=== PATIENT | female | born 1990 | race Caucasian/White ===

== ENCOUNTER 2016-05-12 11:11 | Inpatient (IN) | payer MEDICAID ==
[~2016-05-12] VITALS: Ht 165.1 cm; Wt 54.0 kg
[2016-05-12 12:17] LABS: BASOPHILS 0.2 % (0.0-2.0); EOSINOPHILS 0.2 % (0-7); HEMATOCRIT 37.5 % (36.0-48.0); HEMOGLOBIN 12.9 g/dL (12-16); IMMATURE GRANULOCYTES 0.4 % (0-5); LYMPHOCYTES 30.7 % (15-50); MCH 32.6 pg (26.0-34.0); MCHC 34.4 g/dL (31.0-37.0); MCV 94.7 fL (80.0-100.0); MEAN PLATELET VOLUME 12.4 fL (7.4-10.4); MONOCYTES 9.6 % (2-11); NEUTROPHILS 58.9 % (40-80); PLATELET COUNT 137 10x3/uL (130-400); RBC 3.96 10x6/uL (4.00-5.40); RDW 12.5 % (11.5-14.5); WBC 5.4 10x3/uL (4.8-10.8)
[2016-05-12 12:24] LABS: ALBUMIN 2.7 g/dL (3.4-5.0); ALKALINE PHOSPHATASE 254 U/L (46-116); ALT (SGPT) 24 U/L (10-68); BILIRUBIN - DIRECT 0.08 mg/dL (0.00-0.30); BILIRUBIN - INDIRECT 0.18 mg/dL (0.00-1.00); BILIRUBIN - TOTAL 0.26 mg/dL (0.2-1.3); CALC OSMOLALITY 269 mosm/kg (275-300); CALCIUM 8.4 mg/dL (8.5-10.1); CARBON DIOXIDE 26.5 mmol/L (21.0-32.0); CHLORIDE - SERUM 101 mmol/L (98-107); CREATININE - SERUM 0.7 mg/dL (0.6-1.3); GLUCOSE 71 mg/dL (74-106); POTASSIUM - SERUM 3.9 mmol/L (3.5-5.1); SODIUM 137 mmol/L (136-145); UREA NITROGEN 7 mg/dL (7-18); eGFR NON AFRICAN AMERICAN > 90 mL/min (90-120)
[2016-05-12 12:24] LABS: APPEARANCE CLEAR (CLEAR); BACTERIA MODERATE /hpf (NONE SEEN); BILIRUBIN NEGATIVE (NEGATIVE); COLOR YELLOW (YELLOW); EPITHELIAL CELLS 0-5 /hpf (0-5); GLUCOSE NEGATIVE (NEGATIVE); KETONE NEGATIVE (NEGATIVE); LEUKOCYTE ESTERASE TRACE (NEGATIVE); MUCUS <1+ /lpf (NONE SEEN); NITRITE NEGATIVE (NEGATIVE); PROTEIN 1+ mg/dL (NEGATIVE); RED CELLS - URINE 0-5 /hpf (0-5); SPECIFIC GRAVITY 1.005 (1.005-1.020); UROBILINOGEN NORMAL (NORMAL); WHITE CELLS - URINE 0-5 /hpf (0-5)
[2016-05-12] MEDS ORDERED: FISH OIL 1,0001 CA1 PO (12:50)
[2016-05-12] MEDS ORDERED: PRENATAL COMPLE1 TAB PO (12:50)
[2016-05-12 13:15] VITALS: BP 117/78
[2016-05-12 14:15] VITALS: BP 124/73
[2016-05-12 15:15] VITALS: BP 121/84
[2016-05-12 16:15] VITALS: BP 120/76
[2016-05-12 16:59] LABS: HEMOGLOBIN 11.8 g/dL (12-16); MCH 32.5 pg (26.0-34.0); MCHC 33.7 g/dL (31.0-37.0); MCV 96.4 fL (80.0-100.0); MEAN PLATELET VOLUME 12.2 fL (7.4-10.4); RBC 3.63 10x6/uL (4.00-5.40); RDW 12.4 % (11.5-14.5); WBC 8.1 10x3/uL (4.8-10.8)
[2016-05-12 17:15] VITALS: BP 136/90
[2016-05-12 19:33] VITALS: BP 133/79; Ht 165.1 cm; Wt 54.0 kg
[2016-05-13] VITALS (15 sets, daily range): BP systolic 118–199; BP diastolic 74–103
[2016-05-13 05:22] LABS: HEMATOCRIT 34.8 % (36.0-48.0); MCH 32.3 pg (26.0-34.0); MCHC 34.5 g/dL (31.0-37.0); MEAN PLATELET VOLUME 12.1 fL (7.4-10.4); RBC 3.72 10x6/uL (4.00-5.40); RDW 12.4 % (11.5-14.5)
[2016-05-13 05:23] LABS: MCV 93.5 fL (80.0-100.0); WBC 5.8 10x3/uL (4.8-10.8)
[2016-05-13 12:41] LABS: BASOPHILS 0.2 % (0.0-2.0); EOSINOPHILS 0 % (0-7); HEMATOCRIT 35.4 % (36.0-48.0); IMMATURE GRANULOCYTES 0.6 % (0-5); LYMPHOCYTES 25.6 % (15-50); MCH 32.1 pg (26.0-34.0); MCHC 33.9 g/dL (31.0-37.0); MCV 94.7 fL (80.0-100.0); MEAN PLATELET VOLUME 12.5 fL (7.4-10.4); MONOCYTES 6.8 % (2-11); NEUTROPHILS 66.8 % (40-80); PLATELET COUNT 145 10x3/uL (130-400); RBC 3.74 10x6/uL (4.00-5.40); RDW 12.5 % (11.5-14.5); WBC 5.3 10x3/uL (4.8-10.8)
[2016-05-13 12:57] LABS: CALC OSMOLALITY 273 mosm/kg (275-300); CALCIUM 7.1 mg/dL (8.5-10.1); CARBON DIOXIDE 23.3 mmol/L (21.0-32.0); CHLORIDE - SERUM 105 mmol/L (98-107); CREATININE - SERUM 0.7 mg/dL (0.6-1.3); GLUCOSE 94 mg/dL (74-106); POTASSIUM - SERUM 3.5 mmol/L (3.5-5.1); SODIUM 138 mmol/L (136-145); UREA NITROGEN 7 mg/dL (7-18); URIC ACID 6.1 mg/dL (2.6-7.2); eGFR NON AFRICAN AMERICAN > 90 mL/min (90-120)
[2016-05-13 12:58] LABS: PROTEIN - URINE 33.5 mg/dL (0.0-11.9)
[2016-05-13 12:59] LABS: MAGNESIUM - SERUM 4.9 mg/dL (1.8-2.4)
[2016-05-13 13:10] LABS: ALT (SGPT) 23 U/L (10-68)
[2016-05-13 16:47] LABS: HEMATOCRIT 39.4 % (36.0-48.0); HEMOGLOBIN 13.5 g/dL (12-16); MCH 32.6 pg (26.0-34.0); MCHC 34.3 g/dL (31.0-37.0); MCV 95.2 fL (80.0-100.0); MEAN PLATELET VOLUME 12.4 fL (7.4-10.4); RBC 4.14 10x6/uL (4.00-5.40); RDW 12.5 % (11.5-14.5)
--- NOTE | 2016-05-13 21:31 | NUR ---
PAIN 5/10 TO PERINUM AND ABD, BURNING AND STINGING TO PERINUM, CRAMPING INTERMITTENTLY TO ABD. REQUESTS PERCOCET AND MOTRIN BE GIVEN TOGETHER, MEDS GIVEN PER ORDER AND PT REQUEST.
--- NOTE | 2016-05-13 22:20 | NUR ---
PAIN REASSESSMENT COMPLETED, PAIN 3/10 AT THIS TIME. PT VERBALIZED THAT THIS IS AN ACCEPTABLE PAIN LEVEL. NEW ICE PACK APPLIED TO PERINUM.
--- NOTE | 2016-05-13 22:53 | NUR ---
PT TRANSFERRED TO ROOM 1274 FOR CONTINUED PP CARE. B/P REMAINS ELEVATED, AWARE. MGSO4 CONTINUING TO INFUSE AT 25 MLS/HR. ORIENTED PT TO NEW ROOM. CL/PHONE PLACED WITHIN REACH. PERIPAD CHANGED. EPIFOAM APPLIED TO EPIOSTOMY SITE PER PT REQUEST. S/O AT BEDSIDE, SUPPORTIVE OF PT. ICE WATER AND ICE CHIPS GIVEN PER REQUEST. BED PLACED IN LOW POSITION UPPER SIDE RAILS RAISED X2.
--- NOTE | 2016-05-13 23:00 | NUR ---
PT A&O X3, 3+ DTR'S WITHOUT CLONUS. PT TEARFUL STATING THAT SHE IS WORRIED ABOUT HER INFANT AND FEELS LIKE SHE ISN'T BEING TOLD EVERYTHING. NBN CONTACTED AND NBN RN SPOKE WITH PT REGARDING INFANTS CONDITION, PT VERBALIZED THAT THIS DID HELP "EASE MY MIND." PT REPORTS THAT SHE FEELS OUT OF CONTROL NOT BEING ABLE TO BE WITH HER , EXPLAINED TO PT THAT ONCE B/P'S STABLIZE SHE CAN BE TAKEN TO SEE , PT APPRECIATIVE OF THIS. NBN PHONE NUMBER GIVEN TO PT AND EXPLAINED TO HER THAT SHE CAN CALL INTO NBN ANYTIME TO CHECK ON INFANT, VERBALIZED UNDERSTANDING.
[2016-05-14] VITALS (18 sets, daily range): BP systolic 121–155; BP diastolic 79–99
--- NOTE | 2016-05-14 00:01 | NUR ---
DTR'S 3+, SLEEPING AT THIS TIME BUT EASILY ARROUSABLE, ORIENTED X3. DENIES NEED TO VOID AT THIS TIME. FUNDUS REMAINS FIRM, U1 WITH MODERATE AMT RUBRA LOCHIA, PERIPAD CHANGED, NO CLOTS NOTED. BLADDER NONDISTENDED. BREATH SOUNDS CLEAR AND EQUAL BILATERALLY. DENIES NEEDS AT THIS TIME, REPORTS THAT S/O STEPPED OUT TO GET "FRESH AIR." REINFORCED USE OF CALL FOR ASSISTANCE, VERBALIZED UNDERSTANDING.
--- NOTE | 2016-05-14 01:01 | NUR ---
DTR'S 3+ WITHOUT CLONUS. PT A&O X3 AT THIS TIME REPORTS THAT PAIN IS BEGINNING TO RETURN AND CRAMPING IS "REALLY HURTING." EXPLAINED THAT PIT WAS STILL RUNNING AND PURPOSE FOR IT TO BE RUNNING, VERBALIZED UNDERSTANDING. RATES PAIN 6/10, REQUESTS PAIN MEDICATION WHEN IT IS DUE. DENIES NEED TO VOID AT THIS, BLADDER NONDISTENDED, FUNDUS REMAINS FIRM, U1 WITH SMALL AMT RUBRA LOCHIA TO PERIPAD. DENIES NEEDS AT THIS TIME.
--- NOTE | 2016-05-14 01:51 | NUR ---
PAIN 9/10, PERINUM ACHING AND BURNING AND "REALLY BAD STOMACH CRAMPS. IT FEELS LIKE I AM HAVING CONTX ALL OVER AGAIN. CAN YOU PLEASE MAKE IT STOP." EXPLAINED THAT PIT WAS STILL RUNNING AND PURPOSE BEHIND THIS, VERBALIZED UNDERSTANDING BUT REQUQUESTED THAT PIT BE TURNED OFF, PIT OFF PER PT REFUSAL, EXPLAINED THAT IF BLEEDING BEGAN PIT WOULD HAVE TO BE RESTARTED, VERBALIZED UNDERSTANDING. PERCOCET GIVEN PER ORDERS AND REQUEST.
--- NOTE | 2016-05-14 02:06 | NUR ---
DTR'S 3+ WITHOUT CLONUS. BREATH SOUNDS CLEAR AND EQUAL BILATERALLY. A&O X3. PT VOIDED 750 MLS PINK-TINGED URINE IN BEDPAN. BLADDER NONDISTENDED, FUND REMAINS FIRM U1 WITH SMALL AMT RUBRA LOCHIA TO PERIPAD. PT C/O "LOTS OF BURNING WITH URINATION." PERICARE COMPLETED WITH BETADINE WATCH FOLLOWING VOID, EPIFOAM APPLIED TO LACERATION, PT VERBALIZED RELIEF OF BURNING. ICE PACK APPLIED TO PERINUM PER PT REQUEST. POPICLE GIVEN PER REQUEST. DENIES ADDITIONAL NEEDS AT THIS TIME.
--- NOTE | 2016-05-14 02:14 | NUR ---
PT REPORTS THAT PAIN REMAINS 9/10. STATES IT IS INTERMITTENTLY AND ONLY OCCURS WHEN ABD CRAMPS. NO LONGER TEARFUL. DISCUSSED ORDERS FOR PAIN MEDICATIONS AND FREQUENCY. PT REQUESTS TORADOL BE GIVEN FOR ABD CRAMPING EXPLAINED NEED TO WAIT FULL 6 HRS BETWEEN MOTRIN AND TORADOL, FUNDUS REMAINS FIRM WITH SMALL AMT RUBRA LOCHIA, NO CLOTS. TORADOL GIVEN PER PT REQUEST.
--- NOTE | 2016-05-14 02:45 | NUR ---
PAIN REASSESSMENTS COMPLETED. 06/16 AT THIS TIME. PT RESTING COMFORTABLY. REQUESTS ANOTHER POPICLE, GIVEN PER REQUEST. DENIES ADDITIONAL NEED S/O BACK TO BEDSIDE AT THIS TIME.
--- NOTE | 2016-05-14 03:01 | NUR ---
PT A&O X3 ON TABLET WITH HOB ELEVATED TO 45 DEGREES. B/P REMAINS ELEVATED, STATES PAIN IS TOLERABLE AT 3-4/10. DTR'S REMAIN 3+ WITHOUT CLONUS. CLEAR BREATH SOUNDS. DENIES NEED TO VOID, BLADDER NON DISTENDING, FUNDUS FIRM, U1 WITH SMALL AMT RUBRA LOCHIA TO PERIPAD, NO CLOTS. EXPLAINED THAT LOWER STIMULI HELPS TO KEEP B/P'S LOWER, VERBALIZED UNDERSTANDING, REPORTS THAT SHE IS GOING TO TRY TO REST SHORTLY, SHE WAS LOOKING AT PICTURES OF HER . S/O REMAINS AT BEDSIDE AND SUPPORTIVE OF PT.
--- NOTE | 2016-05-14 04:01 | NUR ---
DTR'S 3+, CLEAR BREATH SOUNDS. PT RESTING WITH EYES CLOSED, AROUSES EASILY AND IS ORIENTED X3. VOIDS 420 MLS ON BEDPAN. BLADDER NONDISTENDED. FUNDUS FIRM, U1 WITH SMALL AMT RUBRA LOCHIA TO PERIPAD, NO CLOTS PRESENT. ICE CHIPS AND POPICLE GIVEN PER REQUEST. ICE PACK REPLACED TO PERINUM.
--- NOTE | 2016-05-14 05:08 | NUR ---
B/P TRENDING DOWN. DRT'S REMAIN 3+ WITHOUT CLONUS. A&O X3, BREATH SOUND CLEAR. VOIDED 500 MLS IN BED YARBROUGH, REPORTS THAT PAIN INCREASED FOLLOWING VOID WITH INCREASED BURING TO PERINUM. PERICARE DONE WITH BETADINE WASH. PERIPAD CHANGED, EPIFOAM APPLIED, VERBALIZED RELIEF. REQUESTS PAIN MED WHEN SHE CAN HAVE IT. ICE WATER GIVEN.
[2016-05-14 05:20] LABS: BASOPHILS 0.1 % (0.0-2.0); EOSINOPHILS 0 % (0-7); HEMATOCRIT 34.5 % (36.0-48.0); HEMOGLOBIN 11.9 g/dL (12-16); IMMATURE GRANULOCYTES 0.4 % (0-5); LYMPHOCYTES 15.7 % (15-50); MCH 31.9 pg (26.0-34.0); MCHC 34.5 g/dL (31.0-37.0); MEAN PLATELET VOLUME 12.5 fL (7.4-10.4); MONOCYTES 5.7 % (2-11); NEUTROPHILS 78.1 % (40-80); PLATELET COUNT 134 10x3/uL (130-400); RBC 3.73 10x6/uL (4.00-5.40); RDW 12.3 % (11.5-14.5)
[2016-05-14 05:23] LABS: MCV 92.5 fL (80.0-100.0)
--- NOTE | 2016-05-14 05:33 | NUR ---
PAIN 7/10, BURNING AND STINGING TO PERINUM. REQUESTED PERCOCET TAB. MED GIVEN PER ORDERS. EPIFOAM REAPPLIED TO PERINUM. STATES THAT PAIN TO PERINUM IS CONSTANT AT THIS TIME. REPOSITION TO RIGHT LATERAL TILT, PT REPORTS THAT THIS DID RELIEVE SOME OF THE PRESSURE THAT SHE WAS FEELING ON HER PERINUM.
[2016-05-14 05:51] LABS: ALT (SGPT) 21 U/L (10-68); CALC OSMOLALITY 265 mosm/kg (275-300); CALCIUM 7.1 mg/dL (8.5-10.1); CARBON DIOXIDE 22.5 mmol/L (21.0-32.0); CHLORIDE - SERUM 103 mmol/L (98-107); CREATININE - SERUM 0.6 mg/dL (0.6-1.3); GLUCOSE 78 mg/dL (74-106); POTASSIUM - SERUM 3.7 mmol/L (3.5-5.1); SODIUM 135 mmol/L (136-145); URIC ACID 5.5 mg/dL (2.6-7.2); eGFR NON AFRICAN AMERICAN > 90 mL/min (90-120)
[2016-05-14 05:52] LABS: MAGNESIUM - SERUM 4.5 mg/dL (1.8-2.4); UREA NITROGEN 5 mg/dL (7-18)
--- NOTE | 2016-05-14 06:18 | NUR ---
DRT'S 3+, ALERT AND ORIENTED X3. STATEST THAT SHE IS CRAMPING "REALLY REALLY BAD." REVIEWED PAIN MED ORDERS WITH PATIENT AND EXPLAINED THAT SHE COULD NOT HAVE ANY MORE PAIN MEDICATION UNTIL 30. VERBALIZED UNDERSTANDING. POPICLE AND ICE WATER GIVEN PER REQUEST. S/O REMAINS AT BEDSIDE.
--- NOTE | 2016-05-14 07:15 | NUR ---
ASSUME CARE OF THIS PATIENT AFTER SHIFT REPORT. SEE SHIFT ASSESSMENT AND MAGNESIUM ASSESSMENT. U/U FIRM, MIDLINE, RUBRA SMALL. DENIES GARCIA. SIDE RAILS UP X 2, CALL LIGHT IN REACH.
--- NOTE | 2016-05-14 08:00 | NUR ---
VOIDED 600 CC URINE ON BEDPAN. REQUESTED PAIN MEDICATION FOR 5/10 CRAMPING. INSTRUCTED TO LET RN KNOW IF CONTINUED PAIN OR INCREASED PAIN. VERBALIZED UNDERSTANDING. DENIES GARCIA TODAY. SIDE RAILS UP X 2, CALL LIGHT IN REACH. DISCUSSED CAUSES OF CRAMPING AND PURPOSE IN PREVENTING INCREASED BLOOD LOSS . VERBALIZED UNDERSTANDING. ALSO INFORMED THAT SHE WILL BE STARTED ON MEDICATION TODAY TO HELP LOWER BP. REMAINS IN NURSERY, FOB AT BEDSIDE.
--- NOTE | 2016-05-14 08:15 | NUR ---
RESTING IN SEMIFOWLERS POSITION. LIGHTS ON LOW. DENIES NEEDING ANYTHING AT THIS TIME. SIDERAILS UP, CALL LIGHT IN REACH.
--- NOTE | 2016-05-14 08:42 | NUR ---
PROCARDIA 30 MG GIVEN PO AFTER DISCUSSING PURPOSE OF MEDICATION AND POSSIBLE SIDE EFFECT. STILL WITH 5/10 INTERMITTENT CRAMPS AND "STITCHES HURTING". DISCUSSED ADDITIONAL RELIEF OPTIONS.
--- NOTE | 2016-05-14 09:04 | NUR ---
NOW WITH 8/10 CRAMPING AND 5/10 PERINEAL PAIN. VOIDED 500 ML CLEAR URINE ON BEDPAN. U/2 FIRM MIDLINE AFTER VOID. RUBRA SCANT. EPIFOAM AND TUCKS PAD APPLIED TO PERINEAL AREA AND INSTRUCTED ON USE. ALSO DERMOPLAST SPRAY FOR ALTERNATE USE. WILL GIVE PERCOCET FOR ADDITIONAL CRAMPING RELIEF WHEN IT IS DUE WITHIN 4 HR TIMEFRAME. PT VERBALIZED UNDERSTANDING. NO ACUTE DISTRESS NOTED.
--- NOTE | 2016-05-14 09:15 | NUR ---
PERCOCET 10 MG GIVEN PO FOR RELIEF OF CRAMPING AND PERINEAL PAIN. MG ASSESSMENT COMPLETED. SIDE RAILS UP X 2, CALL LIGHT IN REACH.
--- NOTE | 2016-05-14 09:53 | NUR ---
SLEEPING IN SEMI-FOWLERS POSITION. RESPIRATIONS EVEN. NOT AROUSED AT THIS TIME.
--- NOTE | 2016-05-14 10:15 | NUR ---
AWAKE, SITTING UP IN BED. DENIES NEEDING ANYTHING. 3/10 INTERMITTENT CRAMPING. FOB IN ROOM, REMAINS IN NURSERY. SIDE RAILS UP X 2, CALL LIGHT IN REACH. MAGNESIUM ASSESSMENT COMPLETED
--- NOTE | 2016-05-14 11:20 | NUR ---
MAG ASSESSMENT COMPLETED. PT COMPLETED PARTIAL BED BATH PER SELF. VOIDED 600 CC ON BED YARBROUGH. DERMOPLAST SPRAY APPLIED TO PERINEUM AND MAXIMINO CARE. REQUESTED BREAST PUMP. NURSERY NOTIFIED. NO ADDITIONAL REQUEST AT THIS TIME. FOB IN ROOM.
--- NOTE | 2016-05-14 11:30 | NUR ---
BREAST PUMP SET UP FOR PT. PT INSTRUCTED ON USE OF PUMP AND ATTACHMENTS. PT DEMONSTRATES UNDERSTANDING. PT ALSO INSTRUCTED ON BREAST MILK STORAGE. VERBALIZES UNDERSTANDING.
--- NOTE | 2016-05-14 12:53 | NUR ---
VOIDED 700 CC CLEAR URINE ON BED YARBROUGH. FRESH ICE PACK AND PERIPAD TO PERINEUM. ELEVATED BP NOTED WHEN AUTOMATIC BP CUFF INFLATED DURING PATIENT GETTING OFF BEDPAN. BP RECHECKED. SIDE RAILS UP X 2, CALL LIGHT IN REACH. FOB PRESENT.
--- NOTE | 2016-05-14 14:15 | NUR ---
MAG ASSESSMENT COMPLETED. C/O 5/10 CRAMPING AFTER VOIDING ON BEDPAN 600 CC URINE. PERCOCET 5 MG GIVEN PO FOR RELIEF OF CRAMPING. DERMOPLAST SPRAY APPLIED TO PERINEUM AFTER PERICARE. FOB VISITED NURSERY. AND VIDEO FOR MOTHER TO SEE. NO ADDITIONAL REQUESTS AT THIS TIME. SIDE RAILS UP X 2, CALL LIGHT IN REACH.
--- NOTE | 2016-05-14 14:50 | NUR ---
VOIDED 600 ML URINE ON BEDPAN. EPIFOAM AND TUCKS APPLIED TO PERINEAL AREA FOR COMFORT. 5/10 INTERMITTENT CRAMPING CONTINUES. POSITIONED FOR COMFORT. SIDE RAILS UP X2 CALL LIGHT IN REACH.
--- NOTE | 2016-05-14 15:15 | NUR ---
MAG SULFATE ASSESSMENT COMPLETED. 07/17 CRAMPING. OFFERED MOTRIN BUT DESIRES TO WAIT TO SEE IF PERCOCET CONTINUES TO HELP. LEMON AKUT[place] DRINK AND POPCYCLE GIVEN PER REQUEST OF PATIENT. FOB IN ROOM.
--- NOTE | 2016-05-14 15:59 | NUR ---
PT C/O OF SUDDEN ONSET OF SHOOTING "LIGHTENING BOLT" PAIN FROM ABOVE UPPER RIGHT ILIAC CREST DOWN RIGHT LATERL HIP AND THIGH. STOPPED AT RIGHT KNEE. WAS 9/10 AT THAT TIME. REPOSITIONED PATIENT TO LEFT SIDE. TENDER TO PALPATION ABOVE ILIAC CREAST, LATERAL HIP, RIGHT GLUTEUS SIS AND LATERAL THIGH. PROVIDED ROM EXERCISE WITH STRETCHES AND MASSAGE. INSTRUCTED PT ON BUTTOCK MASSAGE TO RELAX MUSCLES. SAID IF FELT BETTER AND NO LONGER FEEL RADIATING DOWN LEG. PAIN 7/10 AT THIS TIME AND LOCATED FROM ILIAC CREST TO UPPER RIGHT HIP. LAST BM >2 DAYS AGO. STOOL PALPATED RIGHT ASCENDING COLON. SAYS SHE HAS BEEN PASSING GAS. DR. CASTRO NOTIFIED WILL TRY SIMETHICONE TO SEE IF RELATED TO GAS AT THIS TIME. BOWEL SOUNDS HAVE BEEN ACTIVE. RESTING IN LOW FOWLERS POSITION. SIMETHICONE 80MG GIVEN PO. ENCOURAGED RELAXATION AT THIS TIME. SIDE RAILS UP X 2, CALL LIGHT IN REACH.
--- NOTE | 2016-05-14 16:15 | NUR ---
VOIDED 900+ CC URINE IN BEDPAN WITH SOME SPILLAGE IN BED. COMPLETE LINEN CHANGE DONE. MAG SULFATE ASSESSMENT COMPLETED. POSITIONED FOR COMFORT. C/O 10/16 PERINEAL PAIN, REQUESTED MOTRIN. DERMOPLAST APPLIED WITH CLEAN MAXIMINO-PAD. RIGHT HIP PAIN DECREASED AFTER VOIDED. INSTRUCTED ON DIURESING WHILE ON MAG IN PREECLAMPTIC PATIENTS AND ENCOURAGED TO THINK ABOUT VOIDING MORE OFTEN VS WAITING UNTIL STRONG URGE. INSTRUCTED THAT THIS COULD ALSO BEEN CAUSE OF RIGHT SIDED PAIN. VERBALIZED UNDERSTANDING. DERMOPLAST APPLIED WITH CLEAN MAXIMINO-PAD. MAGNESIUM ASSESSMENT COMPLETED. SIDE RAILS UP X 2, CALL LIGHT IN REACH.
--- NOTE | 2016-05-14 16:37 | NUR ---
MOTRIN 600 MG GIVEN PO FOR RELIEF OF PERINEAL DISCOMFORT.
--- NOTE | 2016-05-14 17:15 | NUR ---
MAG SULFATE ASSESSMENT COMPLETED. HOLDING INFANT IN ARMS. SMILING. 5/10 PERINEAL CONTINUES, RIGHT SIDED HIP PAIN IS BETTER. STATES "I'M JUST HOLDING STILL". ASKED ABOUT . Robinson ALCOCER RN TO DISCUSS PLAN WITH PT. SIDE RAILS UP X 2, CALL LIGHT IN REACH. FRESH WATER GIVEN. TO CALL IF ANYTHING IS NEEDED. PLAN PER MD TO [facility] AT 1830.
--- NOTE | 2016-05-14 17:58 | NUR ---
VOIDED 700 ML URINE ON BEDPAN. ASSISTED TO SITTING POSITION FOR DINNER. INFANT BACK IN NURSERY. FOB IN ROOM. SIDE RAILS UP X 2, CALL LIGHT IN REACH.
--- NOTE | 2016-05-14 18:35 | NUR ---
IV MAGNESIUM AND 1/2 NS DC'D PER MD ORDER. SALINE LOCK FLUSHED X 3 PORTS. SCD'S OFF. ASSISTED TO SITTING POSITION. STOOD WITH SLIGHT ASSISTANCE AND ASSIST TO BATHROOM. GAIT STEADY AND SLOW. VOIDED 700 URINE IN BATHROOM. CLEAN PAD AND UNDERPANTS ON. ASSISTED BACK TO BED. INSTRUCTED IMPORTANCE OF RECEIVING ASSISTANCE WHEN OUT OF BED UNTIL OK'D BY RN TO GET UP PER SELF, SECONDARY TO CONTINUED MAGNESIUM IN SYSTEM. VERBALIZED UNDERSTANDING. ASKED IF IT IS TIME FOR PAIN MEDICATON SECONDARY TO PERINEAL PAIN. USED DERMOPLAST SPRAY AT THIS TIME. FOB IN ROOM. INFANT IN NURSERY. CALL LIGHT IN REACH AND SIDE RAILS UP X 2.
--- NOTE | 2016-05-14 19:26 | NUR ---
PAIN 6/10 TO PERINUM AND ABD, BURNING/STINGING/ACHING TO PERINUM, INTERMITTENT ABD CRAMPING. PERCOCET GIVEN PER ORDERS AND PT REQUEST. PT BONDING WITH INFANT SKIN TO SKIN AT THIS TIME. FUNDUS FIRM, U2 WITH SMALL AMT RUBRA LOCHIA TO PERIPAD. PT REQUESTS FURTHER ASSESSMENT BE COMPLETED ONCE SHE FINISHES BONDING WITH INFANT. ICE WATER GIVEN, DENIES ADDITIONAL NEEDS AT THIS TIME. WILL CONT TO MONITOR. S/O AT BEDSIDE. CL/PHONE WITHIN REACH. REINFORCED USE OF CL FOR ASSISTANCE OOB, VERBALIZED UNDERSTANDING.
--- NOTE | 2016-05-14 20:20 | NUR ---
CALLED TO ROOM VIA CL BY PT. STATES THAT SHE WANTS TO ATTEMPT TO BREAST FEED BUT IS AFRAID TO MOVE INFANT. EXPLAINED TO PT THAT SHE CAN MOVE INFANT AND ENCOURAGED HER TO DO SO. INSTRUCTION PROVIDED ON TECHNIQUES TO WAKE BABY. ARTURON RN TO ROOM TO ASSIST WITH AT THIS TIME.
--- NOTE | 2016-05-14 20:46 | NUR ---
INFANT BACK TO NBN. PT PUMPING AT THIS TIME. INSTRUCTED TO CALL RN USING CL WHEN SHE COMPLETES PUMPING, VERBALIZED UNDERSTANDIGN.
--- NOTE | 2016-05-14 21:15 | NUR ---
PT COMPLETED PUMPING. SHIFT ASSESSMENT COMPLETED. VSS. PAIN 2/10 AT THIS TIME. FUNDUS REMAINS FIRM, SMALL AMT RUBRA LOCHIA NOTED TO PERIPAD, NO CLOTS. MILK OF MAGNESIA GIVEN, SEE EMAR. BOWEL SOUNDS PRESENT AND ACTIVE X4 QUADS, REPORTS THAT SHE IS PASSING GAS. QUESTIONS ANSWERED REGARDING POSSIBLE DISCHARGE AND THAT INFANT WILL LIKELY NOT BE D/C'D AT SAME, EXPLAINED ROOMING IN PROGRAM TO PT, VERBALIZED UNDERSTANDING AND DENIED QUESTIONS. EDUCATED ON S/S OF INFECTIONS/COMPLICATIONS TO REPORT, PAIN MGMT AND USE OF PAIN MEDICATIONS WELL SIDE EFFECTS, DISCUSSED MILK OF MAG USE AND SIDE EFFECTS, VERBALIZED UNDERSTANDING. REINFORCED EDUCATION ON PERINEAL CARE AND HYIGENE, VERBALIZED AND DEMONSTRATED UNDERSTANDING. PT DENIES QUESTIONS AT THIS TIME. REQUESTS TO SHOWER. RN ASSISTED PT TO SHOWER CHAIR. UNSTEADY GAIT NOTED. RN REMAINED IN ROOM DURING SHOWER RELATED TO UNSTEADY GAIT AND SPASTIC MOVEMENTS. PT REPORTS THAT SHE FEELS WEAK AT THIS TIME, DENIES DIZZINESS/LIGHTHEADEDNESS, EXPLAINED THAT MGSO4 CAN CAUSE THIS AND IT WILL SUBSIDE. VERBALIZED UNDERSTANDING. LINEN CHANGED.
--- NOTE | 2016-05-14 21:45 | NUR ---
PT COMPLETED SHOWER, ASSISTANCE WITH GETTING DRESSED PROVIDED. PT CHANGED INTO HER OWN CLOTHES. ASSISTED BACK TO BED, REINFORCED USE OF CL PRIOR TO GETTING OOB, VERBALIZED UNDERSTANDING. CL/PHONE WITHIN REACH. BED IN LOW POSITION, UPPER SIDE RAILS RAISED X2.
--- NOTE | 2016-05-15 00:09 | NUR ---
PAIN 7/10 BURNING AND STINGING TO PERINUM, INTERMITTENT ABD CRAMPING. REQUESTS MOTRIN AND PERCOCET BE TAKEN TOGETHER, STATING THAT WHEN SHE TAKES THEM TOGETHER PAIN IS DECREASED. GIVEN PER REQUEST. ICE WATER GIVEN. S/O AT BEDSIDE, DENIES ADDITIONAL NEEDS AT THIS TIME.
--- NOTE | 2016-05-15 00:16 | NUR ---
CALLED TO ROOM VIA CL. PT REPORTS THAT SHE CAN'T GET THE BREAST PUMP TO SEAL ON HER BREAST. RN PROVIDED ASSISTANCE, BREAST PUMP WOULD NOT FORM SEAL. NEW BREAST PUMP PROVIDED TO PATIENT, WORKING PROPERLY WHEN RN LEFT ROOM.
[2016-05-15 00:55] VITALS: BP 140/84
--- NOTE | 2016-05-15 00:55 | NUR ---
PT COMPLETED PUMPING, NO BREAST MILK FROM PUMPING AT THIS TIME. PAIN REASSESSMENT COMPLETED, WITH PAIN 05/19. B/P 140/84 AT THIS TIME. ASSISTED TO BATHROOM WITH 500 MLS CLEAR YELLOW URINE VOIDED. GAIT REMAINS UNSTEADY, INSTRUCTED TO CONT TO USE CL FOR ASSISTANCE OOB, VERBALIZED UNDERSTANDING.
--- NOTE | 2016-05-15 02:05 | NUR ---
ROUNDS MADE. INFANT JUST BROUGHT TO ROOM BY NBN. PT AT THIS TIME. DENIES NEEDS. S/O REMAINS AT BEDSIDE. WILL CONT TO MONITOR AND ASSIST PRN.
--- NOTE | 2016-05-15 04:11 | NUR ---
ROUNDS MADE. PT SLEEPING AT THIS TIME. RESPIRATIONS REGULAR, NO S/S OF DISTRESS NOTED. S/O AT BEDSIDE ON CELL PHONE. DENIES NEEDS AT THIS TIME. BED IN LOW POSITION, CL/PHONE WITHIN REACH. WILL CONT TO MONITOR.
--- NOTE | 2016-05-15 05:36 | NUR ---
PAIN 7/10, REQUESTED PAIN PILL. STATES ABD CRAMPING AND BURNING/STINGING TO PERINUM. REPORTS THAT SHE HAD BM AND PERINUM IS REALLY HURTING. PERCOCET GIVEN PER REQUEST. ICE WATER GIVEN, DENIES ADDITIONAL NEEDS. CURRENTLY NURSING INFANT.
--- NOTE | 2016-05-15 07:15 | NUR ---
Bedside report received from Montse Mcgarry rn. Upon entering room pt is resting with eyes closed and infant layed across her chest. States that she is very tired and cannot keep her eyes open. Offered to take infant back to nursery so that she may sleep and she is agreeable. Rates her pain at 2/10, denies any needs at this time. Side rails up x 2 with phone and call light in reach. Ask that she call for nurse when she wakes..Infant taken to nbn via crib.
[2016-05-15 09:30] VITALS: BP 131/92
--- NOTE | 2016-05-15 09:35 | NUR ---
Zeynep Harmon 05/15/16 S: Patient states baby takes some time latching on, once she gets on there, baby does fine. O: Patient lying in bed, FOB lying on sofa, both appears to be sleeping. CLC walked in room with nursery nurse who brought in for feeding. Observed patient attempt to latch , infant was placed to the left breast. awake and content didn't latch immediately. Patient doesn't have flat or inverted nipples. places her tongue on top of her mouth when trying to latch. Showed patient, she may place her clean finger in, mouth, with her tongue on the bottom and let suck for a few minutes, then try latching infant to the breast. Explain how to verify is latched correctly to the breast. Attempted to re latch infant, infant was turned tummy to tummy, nose opposite of nipple, infant self-latched on left breast at 9:26, sucking in a rocking motion, mouth round, and 140 degrees. Infant appear content with feeding, patient states she feels her stomach kelly, explain that is normal, it confirms infant is latched correctly. Explain does take time and patience, explain feeding cues, benefits of skin to skin, breastmilk composition, and encouraged to continue to latch for every feeding. Asked if she had any questions or concerns, all declined. Offered to make [facility] appointment, patient states she will do so at a later time. A: Patient appears to be very tired. P: Continue to support exclusively during hospital visit. LORENE Aguayo CLC
[2016-05-15] MEDS ORDERED: PERCOCET 5-3251 TAB PO (09:44)
[2016-05-15] MEDS ORDERED: IBUPROFEN600 MG PO (09:44)
--- NOTE | 2016-05-15 09:45 | NUR ---
Saline lock to right wrist d/c with cath intact.
--- NOTE | 2016-05-15 09:45 | NUR ---
Assessment completed as charted on flowsheet. Info given about rooming in and tdap, pt asked to read over than let nurse know if she has any questions or concerns. Fundus firm at u/u with scant bleeding, she denies any clots with voids but continue to say she has a lot of burning in perineum area, sitz bath offered to help with pain relief but pt refuses at this time. Encouraged her to let nurse know if she changes her mind, also explained that warm shower could help. Rates pain at 5/10 and is agreeable to pain med. She states that Dr Kraus came in and explained discharge/room-in and she denies any questions at this time, states that her friend will be back in about 20minutes to meat pickler scripts to go and fill for her.
[2016-05-15] MEDS ORDERED: PROCARDIA XL PO ×2 (09:47→09:48)
--- NOTE | 2016-05-15 10:15 | NUR ---
Percocet 5/325mg given po as charted on emar. PT holding infant close and talking with lacation technical assistance consultant at bedside. Call light in reach with side rails up x 2.
--- NOTE | 2016-05-15 11:38 | NUR ---
Pt scripts for Percocet 5/325mg, Motrin 600mg and Procardia XL 30mg given to pts sig other to take to pharmacy. Will go over discharge when he arrives back with her meds.
--- NOTE | 2016-05-15 13:01 | NUR ---
Called to room, pt has questions about feedings, Nursery notified and comes to room to provide assistance.
--- NOTE | 2016-05-15 13:21 | NUR ---
Pt sitting up in bed with to breast, additional pillows provided for her support. Denies needs at this time, side rails up x 2 with call light in reach.
--- NOTE | 2016-05-15 14:32 | NUR ---
PT DESIRES TDAP PRIOR TO DC. HAS RECEIVED INFORMATION SHEET AND NO CURRENT QUESTIONS. TDAP GIVEN IM LEFT DELTOID WITHOUT DIFFICULTY.
--- NOTE | 2016-05-15 14:50 | NUR ---
DC INSTRUCTIONS COMPLETED INCLUDING ROUTINE PP, BREASTCARE S&S INFECTION, PP DEPRESSION, MAXIMINO-CARE, MEDICATION INSTRUCTIONS AND FOLLOW-UP. VERBALIZED UNDERSTANDING. FOB PICKED UP PT PRESCRIPTIONS. HAS WRITTEN INFORMATION IN HAND. TRANSFERRED TO ROOMING IN STATUS TO ROOM 1215. ORIENTED TO ROOM. FOB PRESENT.
[2016-05-16 06:13] LABS: RAPID PLASMA REAGIN Non Reactive (Non Reactive)
== END 2016-05-15 14:50 | disposition home or self-care (01) | DRG 775 ==
LOC: D.LD 11:11 → D.LDO 11:11 → OBSVTIME 11:21 → D.LD 11:21
PROVIDERS: Obstetrics & Gynecology; ADMIT Specialist
PROC: 10E0XZZ Delivery of Products of Conception, External Approach (ICD-10-PCS; principal; 2016-05-13)
PROC: 0W8NXZZ Division of Female Perineum, External Approach (ICD-10-PCS; 2016-05-13)
DX: O14.14 Severe pre-eclampsia complicating childbirth (principal); Z3A.35 35 weeks gestation of pregnancy; Z37.0 Single live birth; K21.9 Gastro-esophageal reflux disease without esophagitis; K27.9 Peptic ulcer, site unspecified, unspecified as acute or chronic, without hemorrhage or perforation; O75.89 Other specified complications of labor and delivery; Z87.891 Personal history of nicotine dependence

== ENCOUNTER 2017-01-23 09:58 | Emergency (ER) | payer MEDICAID ==
[2016-05-12 19:33] VITALS: BMI 19.8
[~2017-01-23 09:58] MED LIST: FISH OIL 1,0001 CA1 PO; IBUPROFEN600 MG PO; PERCOCET 5-3251 TAB PO; PRENATAL COMPLE1 TAB PO; PROCARDIA XL PO
[2017-01-23 11:11] LABS: BASOPHILS 0.2 % (0-2); EOSINOPHILS 0.2 % (0-7); HEMATOCRIT 39.7 % (36.0-48.0); HEMOGLOBIN 13.7 g/dL (12-16); IMMATURE GRANULOCYTES 0.2 % (0-5); LYMPHOCYTES 13.5 % (15-50); MCH 32.1 pg (26.0-34.0); MCHC 34.5 g/dL (31.0-37.0); MEAN PLATELET VOLUME 9.5 fL (7.4-10.4); MONOCYTES 8.4 % (2-11); NEUTROPHILS 77.5 % (40-80); RBC 4.27 10x6/uL (4.00-5.40); WBC 10.3 10x3/uL (4.8-10.8)
[2017-01-23 11:17] LABS: PLATELET COUNT 234 10x3/uL (130-400)
[2017-01-23 11:25] LABS: APPEARANCE CLOUDY (CLEAR); BACTERIA MODERATE /hpf (NONE SEEN); BILIRUBIN NEGATIVE (NEGATIVE); COLOR YELLOW (YELLOW); EPITHELIAL CELLS 0-5 /hpf (0-5); GLUCOSE NEGATIVE (NEGATIVE); KETONE NEGATIVE (NEGATIVE); MUCUS <1+ /lpf (NONE SEEN); NITRITE NEGATIVE (NEGATIVE); PROTEIN 3+ mg/dL (NEGATIVE); RED CELLS - URINE 25-50 /hpf (0-5); SPECIFIC GRAVITY 1.015 (1.005-1.020); UROBILINOGEN NORMAL (NORMAL); WHITE CELLS - URINE >50 /hpf (0-5)
[2017-01-23 11:33] LABS: HCG SERUM NEGATIVE (NEGATIVE)
== END 2017-01-23 12:25 | disposition home or self-care (01) ==
LOC: D.ER 09:58
PROVIDERS: Family Medicine; Physician Assistant
DX: N12 Tubulo-interstitial nephritis, not specified as acute or chronic (principal); R10.9 Unspecified abdominal pain; F17.200 Nicotine dependence, unspecified, uncomplicated

== ENCOUNTER 2017-09-17 14:36 | Emergency (ER) | payer MEDICAID ==
[~2017-09-17] VITALS: Ht 165.1 cm; Wt 45.5 kg
[2017-09-17 14:46] VITALS: Ht 165.1 cm; Wt 45.5 kg
[2017-09-17] MEDS ORDERED: BUPRENORPHIN-N1 EACH SL (14:47)
[2017-09-17] MEDS ORDERED: VIBRAMYCIN 100100 MG PO (19:17)
[2017-09-17] MEDS ORDERED: FLOXIN 0.3 % OTI5 ML EACH EAR (19:17)
[2017-09-17] MEDS ORDERED: TORADOL10 MG PO (19:17)
[2017-09-17 19:57] VITALS: BP 118/70
== END 2017-09-17 19:58 | disposition home or self-care (01) ==
LOC: D.ER 14:36
PROVIDERS: Family Medicine
DX: H00.011 Hordeolum externum right upper eyelid (principal); F17.200 Nicotine dependence, unspecified, uncomplicated

== ENCOUNTER 2019-11-22 16:57 | Outpatient (CLI) | payer MEDICAID ==
[2017-09-17 14:46] VITALS: BMI 16.6
[~2019-11-22 16:57] MED LIST changes: +BUPRENORPHIN-N1 EACH SL; +FLOXIN 0.3 % OTI5 ML EACH EAR; +TORADOL10 MG PO; +VIBRAMYCIN 100100 MG PO
[2019-11-22 18:43] LABS: BILIRUBIN NEGATIVE (NEGATIVE); GLUCOSE NEGATIVE (NEGATIVE); KETONE NEGATIVE (NEGATIVE); NITRITE NEGATIVE (NEGATIVE); UROBILINOGEN NORMAL (NORMAL)
== END 2019-11-22 21:15 | disposition home or self-care (01) ==
LOC: D.LDO 16:57
PROVIDERS: ATTEND Obstetrics & Gynecology
DX: O26.899 Other specified pregnancy related conditions, unspecified trimester (principal)